=== PATIENT | female | born 1985 | race Caucasian/White ===

== ENCOUNTER 2018-04-25 15:02 | Inpatient (IN) | payer MEDICAID ==
[2018-04-25] MEDS: BETAMET NA PHOS/AC(6 MG/ML) 5ML INJ IM (16:33)
[2018-04-25 17:19] LABS: ADD MAN DIFF? NO
[2018-04-25 17:23] LABS: WHITE BLOOD COUNT 11.4 10^3/ul (4.8-10.8)
[2018-04-25 17:23] LABS: ABNORMAL IP MESSAGE 1; BASOPHILS % 0.3 % (0.0-2.0); EOSINOPHILS # 0.2 10^3/ul (0.0-0.5); HEMATOCRIT 32.8 % (37.0-47.0); HEMOGLOBIN 10.9 g/dl (12.0-16.0); LYMPHOCYTES # 1.5 10^3/ul (0.8-2.9); LYMPHOCYTES % 13.2 % (15.0-51.0); MEAN CORPUSCULAR HEMOGLOBIN 31.2 pg (29.0-33.0); MEAN CORPUSCULAR HGB CONC 33.2 g/dl (32.0-37.0); MEAN PLATELET VOLUME 12.8 fl (7.4-10.4); MONOCYTE # 0.5 10^3/ul (0.3-0.9); MONOCYTES % 4.3 % (0.0-11.0); NEUTROPHILS % 78.6 % (39.0-77.0); PLATELET COUNT 74 10^3/UL (140-415); RED BLOOD COUNT 3.49 10^6/ul (4.20-5.40); RED CELL DISTRIBUTION WIDTH 13.6 % (11.5-14.5)
[2018-04-25 17:39] LABS: POSITIVE DIFF @See below
[2018-04-25 18:04] LABS: ADD UMIC NO; UR ASCORBIC ACID NEGATIVE (NEGATIVE); UR BILIRUBIN (Dip) NEGATIVE (NEGATIVE); UR BLOOD (Dip) NEGATIVE (NEGATIVE); UR CLARITY CLEAR (CLEAR); UR COLOR STRAW (YELLOW); UR GLUCOSE (Dip) NEGATIVE (NEGATIVE); UR KETONES (Dip) NEGATIVE (NEGATIVE); UR LEUKOCYTE ESTERASE (Dip) NEGATIVE Leu/ul (NEGATIVE); UR NITRITE (Dip) NEGATIVE (NEGATIVE); UR SPECIFIC GRAVITY (Dip) 1.005 (1.003-1.030); UR TOTAL PROTEIN (Dip) NEGATIVE (NEGATIVE); UR UROBILINOGEN (Dip) NEGATIVE (NEGATIVE)
[2018-04-25] MEDS ORDERED: GLUCAGON 1 MG INJ IM (19:00)
[2018-04-25] MEDS ORDERED: GLUCOSE GEL 15 GRAM TUBE PO ×2 (19:00)
[2018-04-25] MEDS ORDERED: GLUCOSE GEL 15 GRAM TUBE BUCCAL (19:00)
[2018-04-25] MEDS ORDERED: DEXTROSE 50% 50 ML SYRINGE IV ×2 (19:00)
[2018-04-25] MEDS ORDERED: ACCU-CHEK XX ×4 (19:35)
[2018-04-26] MEDS: PRENATAL VITAMIN PO (10:09)
[2018-04-26] MEDS: BETAMET NA PHOS/AC(6 MG/ML) 5ML INJ IM (16:32)
== END 2018-04-26 22:00 | disposition home or self-care (01) | DRG 781 ==
LOC: OBT 15:02 → L-D 15:02 → OBT 18:29 → L-D 18:29
DX: O99.113 Other diseases of the blood and blood-forming organs and certain disorders involving the immune mechanism complicating pregnancy, third trimester (principal); O24.419 Gestational diabetes mellitus in pregnancy, unspecified control; O26.873 Cervical shortening, third trimester; O98.513 Other viral diseases complicating pregnancy, third trimester; Z3A.31 31 weeks gestation of pregnancy; J45.909 Unspecified asthma, uncomplicated
CPT/HCPCS: 81003; 82962; 85025; 87086

== ENCOUNTER 2018-06-19 05:38 | Inpatient (IN) | payer MEDICAID ==
[2018-06-19] MEDS ORDERED: IBUPROFEN 600 MG TAB PO (06:00)
[2018-06-19] MEDS ORDERED: OXYTOCIN 10 UNIT INJ IM (06:00)
[2018-06-19] MEDS ORDERED: BUTORPHANOL 2 MG INJ IV (06:00)
[2018-06-19] MEDS ORDERED: METHYLERGONOVINE 0.2 MG INJ IM ×2 (06:00→16:30)
[2018-06-19] MEDS ORDERED: CARBOPROST 250 MCG INJ IM ×2 (06:00→16:30)
[2018-06-19] MEDS ORDERED: MISOPROSTOL 200 MCG TAB PR ×2 (06:00→16:30)
[2018-06-19] MEDS: LACTATED RINGER'S 1,000 ML IV* ×2 (06:00→11:04)
[2018-06-19 06:20] LABS: ADD MAN DIFF? NO
[2018-06-19 06:29] LABS: ABNORMAL IP MESSAGE 1; BASOPHIL # 0.1 10^3/ul (0.0-0.1); BASOPHILS % 0.3 % (0.0-2.0); EOSINOPHILS # 0.2 10^3/ul (0.0-0.5); HEMATOCRIT 38.7 % (37.0-47.0); LYMPHOCYTES # 3.2 10^3/ul (0.8-2.9); LYMPHOCYTES % 18.3 % (15.0-51.0); MEAN CORPUSCULAR HEMOGLOBIN 30.3 pg (29.0-33.0); MEAN CORPUSCULAR HGB CONC 33.6 g/dl (32.0-37.0); MEAN CORPUSCULAR VOLUME 90.2 fl (82.0-101.0); MEAN PLATELET VOLUME 13.5 fl (7.4-10.4); MONOCYTES % 5.8 % (0.0-11.0); NEUTROPHIL # 12.5 10^3/ul (1.6-7.5); NEUTROPHILS % 72.1 % (39.0-77.0); PLATELET COUNT 103 10^3/UL (140-415); RED BLOOD COUNT 4.29 10^6/ul (4.20-5.40); RED CELL DISTRIBUTION WIDTH 13.7 % (11.5-14.5)
[2018-06-19 06:29] LABS: WHITE BLOOD COUNT 17.3 10^3/ul (4.8-10.8)
[2018-06-19 06:31] LABS: POSITIVE DIFF @See below
[2018-06-19] MEDS: OXYTOCIN 30 UNITS/LR 500 ML IV ×2 (06:32→07:04)
[2018-06-19] MEDS: LIDOCAINE 1% (MPF) 30 ML INJ INJ (06:42)
[2018-06-19 06:48] LABS: INR 0.85; PROTIME 11.7 Sec (11.9-14.9); PT RATIO 0.9
[2018-06-19 06:49] LABS: PARTIAL THROMBOPLASTIN TIME 24.7 Sec (25.0-35.0)
[2018-06-19 15:39] LABS: RAPID PLASMA REAGIN NONREACTIVE (NR)
[2018-06-19] MEDS ORDERED: OXYTOCIN 30 UNITS/LR 500 ML IV (16:30)
[2018-06-19] MEDS ORDERED: ZOLPIDEM 5 MG TAB PO (16:30)
[2018-06-19] MEDS ORDERED: OXYCODONE/ASPIRIN (4.88/325) TAB PO ×2 (16:30)
[2018-06-19] MEDS: IBUPROFEN 600 MG TAB PO (18:00)
[2018-06-19] MEDS: LANOLIN 7 GM TUBE TOP (18:01)
[2018-06-19] MEDS: WITCH HAZEL/GLYCERIN PAD PR ×2 (18:02→18:05)
[2018-06-19 19:18] LABS: ADD MAN DIFF? NO
[2018-06-19 19:32] LABS: ABNORMAL IP MESSAGE 1; BASOPHILS % 0.1 % (0.0-2.0); EOSINOPHILS # 0.1 10^3/ul (0.0-0.5); EOSINOPHILS % 0.4 % (0.0-7.0); HEMATOCRIT 31.8 % (37.0-47.0); HEMOGLOBIN 10.5 g/dl (12.0-16.0); LYMPHOCYTES # 1.5 10^3/ul (0.8-2.9); LYMPHOCYTES % 10.6 % (15.0-51.0); MEAN CORPUSCULAR HEMOGLOBIN 29.7 pg (29.0-33.0); MEAN CORPUSCULAR VOLUME 90.1 fl (82.0-101.0); MEAN PLATELET VOLUME 13.6 fl (7.4-10.4); MONOCYTE # 0.6 10^3/ul (0.3-0.9); MONOCYTES % 4.5 % (0.0-11.0); NEUTROPHIL # 11.6 10^3/ul (1.6-7.5); PLATELET COUNT 76 10^3/UL (140-415); RED BLOOD COUNT 3.53 10^6/ul (4.20-5.40); RED CELL DISTRIBUTION WIDTH 13.7 % (11.5-14.5)
[2018-06-19 19:33] LABS: POSITIVE DIFF @See below
[2018-06-19] MEDS: ACCU-CHEK XX (20:05)
[2018-06-19] MEDS: SENNA/DOCUSATE NA (8.6MG/50MG) TAB PO (20:46)
[2018-06-19] MEDS: ACETAMINOPHEN 500 MG TAB PO (20:47)
[2018-06-19] MEDS: BENZOCAINE 20% 56 ML SPRAY TOP (21:52)
[2018-06-20] MEDS: ACETAMINOPHEN 500 MG TAB PO ×4 (03:23→21:57)
[2018-06-20] MEDS: IBUPROFEN 600 MG TAB PO ×4 (05:58→17:47)
[2018-06-20 06:35] LABS: ADD MAN DIFF? NO
[2018-06-20 06:40] LABS: WHITE BLOOD COUNT 13.9 10^3/ul (4.8-10.8)
[2018-06-20 06:40] LABS: ABNORMAL IP MESSAGE 1; BASOPHILS % 0.2 % (0.0-2.0); EOSINOPHILS # 0.1 10^3/ul (0.0-0.5); EOSINOPHILS % 0.5 % (0.0-7.0); HEMATOCRIT 29.7 % (37.0-47.0); HEMOGLOBIN 9.9 g/dl (12.0-16.0); LYMPHOCYTES # 1.7 10^3/ul (0.8-2.9); LYMPHOCYTES % 12.1 % (15.0-51.0); MEAN CORPUSCULAR HEMOGLOBIN 30.2 pg (29.0-33.0); MEAN CORPUSCULAR HGB CONC 33.3 g/dl (32.0-37.0); MEAN CORPUSCULAR VOLUME 90.5 fl (82.0-101.0); MONOCYTE # 0.6 10^3/ul (0.3-0.9); MONOCYTES % 4.6 % (0.0-11.0); NEUTROPHIL # 11.4 10^3/ul (1.6-7.5); NEUTROPHILS % 81.5 % (39.0-77.0); PLATELET COUNT 74 10^3/UL (140-415); RED BLOOD COUNT 3.28 10^6/ul (4.20-5.40); RED CELL DISTRIBUTION WIDTH 14.1 % (11.5-14.5)
[2018-06-20 06:43] LABS: POSITIVE DIFF @See below
[2018-06-20] MEDS: SENNA/DOCUSATE NA (8.6MG/50MG) TAB PO ×2 (09:40→23:18)
[2018-06-20] MEDS: WITCH HAZEL/GLYCERIN PAD PR (09:41)
[2018-06-20] MEDS: ACCU-CHEK XX (21:00)
[2018-06-21] MEDS: IBUPROFEN 600 MG TAB PO ×2 (06:00)
[2018-06-21] MEDS: SENNA/DOCUSATE NA (8.6MG/50MG) TAB PO (08:51)
[2018-06-21] MEDS: ACETAMINOPHEN 500 MG TAB PO (10:44)
[2018-06-21] MEDS: DIPHTH/TET/ACEL PERTUSS (ADULT) 0.5 ML VIAL IM* (14:09)
== END 2018-06-21 17:16 | disposition home or self-care (01) | DRG 775 ==
LOC: OBT 05:38 → L-D 05:40 → OBT 05:51 → L-D 05:51 → PP1 09:04
PROVIDERS: Obstetrics & Gynecology
PROC: 10E0XZZ Delivery of Products of Conception, External Approach (ICD-10-PCS; principal; 2018-06-19)
PROC: 0HQ9XZZ Repair Perineum Skin, External Approach (ICD-10-PCS; 2018-06-19)
DX: O24.425 Gestational diabetes mellitus in childbirth, controlled by oral hypoglycemic drugs (principal); O99.12 Other diseases of the blood and blood-forming organs and certain disorders involving the immune mechanism complicating childbirth; D69.3 Immune thrombocytopenic purpura; O70.9 Perineal laceration during delivery, unspecified; Z3A.38 38 weeks gestation of pregnancy; Z37.0 Single live birth
CPT/HCPCS: 82962; 85025; 85610; 85730; 86592; 86850; 86900; 86901; 90715; 99464